=== PATIENT | female | born 1965 | race Caucasian/White ===

== ENCOUNTER 2016-12-20 08:42 | Day surgery (SDC) | payer BC ==
[~2016-12-20 08:42] MED LIST: Lidocaine 1%/Sod Bicarbonate in NS 8.4% 1 ML Syringe PRN; Sodium Chloride 0.9% 10 ML Syringe FLUSH PRN
[2016-12-20] MEDS ORDERED: Propofol 200 MG/20 ML SDV ONE (09:11)
[2016-12-20] MEDS ORDERED: fentaNYL 250 MCG/5 ML SDV ONE (09:11)
[2016-12-20] MEDS ORDERED: Ondansetron 4 MG/2 ML SDV ONE (09:11)
[2016-12-20] MEDS ORDERED: Midazolam 1 MG/ML 2 ML SDV ONE (09:11)
[2016-12-20] MEDS ORDERED: Rocuronium 50 MG/5 ML Vial ONE (09:11)
[2016-12-20] MEDS ORDERED: Lidocaine 1% 4 ML ONE (09:12)
[2016-12-20] MEDS ORDERED: Dexamethasone 4 MG/ML 5 ML MDV ONE (09:12)
[2016-12-20] MEDS: Lactated Ringers 1,000 ML IV SCH ×2 (09:15→12:36)
--- NOTE | 2016-12-20 09:22 | PCM.PREANE ---
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 , Other (see below) Other OB/BYN History: irregular menses, , yeast infection Musculoskeletal History: Reports: None Neurological History: Reports: Headaches, chronic, Migraines Psychiatric History: Reports: Depression, Other (see below) Other Psychiatric History: fatigue Endocrine/Metabolic History: Reports: None Hematologic History: Reports: None Immunologic History: Reports: None Oncologic (Cancer) History: Reports: None Dermatologic History: Reports: Other (see below) Other Dermatologic History: malignant melanoma - Past Surgical History Head Surgeries/Procedures: Reports: None HEENT Surgical History: Reports: Tonsillectomy GI Surgical History: Reports: Other (see below) Other GI Surgeries/Procedures: hemorrhoidectomy - SUBSTANCE USE Smoking Status *Q: Never Smoker Recreational Drug Use History: No - HOME MEDS Home Medications: Home Meds Cholecalciferol (Vitamin D3) [Vitamin D3] 1,000 unit PO DAILY 12/19/16 [History] Cyclobenzaprine HCl [Cyclobenzaprine HCl] 1 tab PO BEDTIME PRN 12/19/16 [History ] FLUoxetine HCl [Fluoxetine HCl] 40 mg PO DAILY 12/19/16 [History] FLUoxetine [PROzac] 20 mg PO DAILY 12/19/16 [History] Ibuprofen 1 - 3 tab PO Q6H PRN 12/19/16 [History] Multivitamin [Daily Juan] 1 tab PO DAILY 12/19/16 [History] SUMAtriptan Succinate [Sumatriptan Succinate] 1 tab PO ASDIRECTED PRN 12/19/16 [ History] - CURRENT (IN HOUSE) MEDS Current Meds: Current Medications Lactated Ringer's (Ringers, Lactated) 1,000 mls @ 125 mls/hr IV ASDIRECTED JENNA Stop: 12/20/16 23:00 Lidocaine/Sodium Bicarbonate (Buffered Lidocaine 1% In Ns 8.4%) 0.25 ml .XX ONETIME PRN PRN Reason: Prior to IV Start Stop: 12/20/16 18:00 Sodium Chloride (Saline Flush) 10 ml FLUSH ASDIRECTED PRN PRN Reason: Keep Vein Open Stop: 12/20/16 18:00 Discontinued Medications Dexamethasone (Dexamethasone) Confirm Administered Dose 20 mg .ROUTE .STK-MED ONE Stop: 12/20/16 09:13 Fentanyl (Sublimaze) Confirm Administered Dose 250 mcg .ROUTE .STK-MED ONE Stop: 12/20/16 09:12 Lidocaine HCl (Xylocaine-Mpf 1%) Confirm Administered Dose 4 mls @ as directed .ROUTE .STK-MED ONE Stop: 12/20/16 09:13 Midazolam HCl (Versed 1 Mg/Ml) Confirm Administered Dose 2 mg .ROUTE .STK-MED ONE Stop: 12/20/16 09:12 Ondansetron HCl (Zofran) Confirm Administered Dose 4 mg .ROUTE .STK-MED ONE Stop: 12/20/16 09:12 Propofol (Diprivan 20 Ml) Confirm Administered Dose 200 mg .ROUTE .STK-MED ONE Stop: 12/20/16 09:12 Rocuronium [place] (Zemuron) Confirm Administered Dose 50 mg .ROUTE .STK-MED ONE Stop: 12/20/16 09:12 Preanesthetic Assessment - ANESTHESIA/TRANSFUSION/FAMILY HX Anesthesia/Transfusion History: No Prior Transfusion(s), Prior Anesthesia Type of Anesthesia Reaction: Denies: Allergy, Anesthesia Awareness, Excessive Somnolence, Excessive Nausea/Vomiting, Excessive Itching, Excessive Shivering, Malignant Hyperthermia, Malignant Hyperthermia, Family History, Pseudocholinesterase Deficiency, Pseudocholinesterase Deficiency, Family History of, Urinary Retention, Unknown, Other (see below) Family History of Anesthesia Reaction: No Intubation History: Unknown - REVIEW OF SYSTEMS Constitutional: Reports: no symptoms 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 Respiratory: Reports: no symptoms (asthma as a child.) Cardiovascular: Reports: no symptoms GI: Reports: no symptoms (occasional GERD) Other: Reports: None (migraines.), Easy Bruising, Depression - PHYSICAL ASSESSMENT HR: 98 O2 Sat by Pulse Oximetry: 97 RR: 18 BP: 133/76 Temp: 36.6 C Height: 1.52 m Weight: 70.307 kg NPO Status Date: 12/19/16 NPO Status Time: 21:00 ASA Class: 2 Mental Status: Alert & Oriented x3 Airway Class: Mallampati = 2 Dentition: Reports: Normal Dentition, Implants (front caps.), Caries Thyro-Mental Finger Breadths: 3 Mouth Opening Finger Breadths: 3 ROM/Head Extension: Full Respiratory Status: lungs clear to auscultation bilaterally Cardiovascular Status: regular rate & rhythm, normal S1, S2, no murmur - LAB Values: Reviewed and noted. - ALLERGIES Allergies/Adverse Reactions: Allergies Allergy/AdvReac Type Severity Reaction Status Date / Time No Known Allergies Allergy Verified 12/19/16 16:13 - ANESTHESIA PLAN Preop Beta Michael: No Anesthesia Type Planned: General Anesthesia - ACKNOWLEDGEMENTS Pt an Appropriate Candidate for the Planned Anesthesia: Yes Alternatives and Risks of Anesthesia Discussed w Pt/Guardian: Yes Pt/Guardian Understands and Agrees with Anesthesia Plan: Yes
[2016-12-20] MEDS: Lidocaine 1% with EPINEPHrine 1:100,000 20 ML MDV ONE ×2 (10:58→11:00)
[2016-12-20] MEDS: Sodium Chloride 0.9% 50 ML SDV ONE ×2 (10:58→11:00)
[2016-12-20] MEDS ORDERED: Ondansetron 4 MG/2 ML SDV IVPUSH PRN ×2 (11:04→11:37)
[2016-12-20] MEDS ORDERED: Meperidine PF 50 MG/ML Syringe IVPUSH PRN (11:04)
[2016-12-20] MEDS ORDERED: diphenhydrAMINE 50 MG/ML SDV IVPUSH PRN (11:04)
--- NOTE | 2016-12-20 11:32 | PCM.POSTAN ---
POST ANESTHESIA ASSESSMENT - MENTAL STATUS Mental Status: alert, oriented - VITAL SIGNS Pulse Rate: 95 SaO2: 97 Resp Rate: 17 Blood Pressure: 131/72 Temperature: 37.2 C - RESPIRATORY Respiratory Status: respiratory rate WNL, airway patent, O2 saturation stable - CARDIOVASCULAR CV Status: pulse rate WNL, blood pressure stable - GASTROINTESTINAL GI Status: no symptoms - PAIN Pain Score: 0 - POST OP HYDRATION Hydration Status: adequate & stable
--- NOTE | 2016-12-20 11:35 | PCM.OPNOTE ---
- General Post-Op/Procedure Note Date of Surgery/Procedure: 12/20/16 Operative Procedure(s): Total vaginal hysterectomy with Bilateral salpino- oophorectomy Findings: Normal appearing uterus, tubes and ovaries. Pre Op Diagnosis: Irregular menses Post-Op Diagnosis: Same Anesthesia Technique: General ET tube Other Anesthesia Type: Local Primary Surgeon: Shantanu Seay Secondary Surgeon: Pop Chiu Anesthesia Provider: Anuj Mcknight Fleet Service Manager: Ruby Ramsey Pathology: uterus, tubes and ovaries in one container. Fluid Replacement, Intraop: 1,000 EBL in mLs: 20 Complications: None Condition: Good Free Text/Narrative:: Surgery duration: Benign minutes Patient's: None Procedure:The patient was taken to the operating room. She was placed in supine position on the operating table. General endotracheal anesthesia and was accomplished. Patient was given Ancef 2 g IV preop for infection prophylaxis and had sequential compression stockings in place for DVT prophylaxis. After positioning prep and drape were accomplished in a routine fashion. The patient was then operated upon. Sterile weighted speculum was placed in the vagina and cervix was visualized. Cervix was injected with lidocaine quarter percent with epinephrine-20 cc total. A full circumference incision was made through the cervical epithelium and cervical epithelium was pushed well back off the cervix. Posterior cul-de-sac was entered sharply. The left uterosacral ligament was then crossclamped with a LigaSure vessel closure system. This is developed in routine fashion. Same was done on the right side. Anterior cul-de-sac was then entered without problems. The uterine vasculature, remainder of cardinal ligament, broad ligament and eventually fallopian tube and upper broad ligament pedicles were then developed using LigaSure vessel closure system. At this time the fallopian tube on the left side was isolated and using LigaSure vessel closure system meso-salpinx was cauterized. The ovary and fallopian tube were then removed by crossclamping the infundibulopelvic ligament. This pedicle was suture ligated using #1 Vicryl suture in a Ibeth stitch. Same was then done on the side. The posterior cuff was then run from approximately the 2:00 to the 10 :00 position posteriorly with a running lock suture of 0 Monocryl Hemostasis was confirmed at this time. Sponge instrument and needle counts are correct. The pursestring suture of 0 Monocryl was then used to close the peritoneal cavity. The vaginal cuff was closed with a running locked suture from right side to left side with 0 Monocryl suture. At this time hemostasis confirmed. Sponge, instrument and needle counts were correct. The patient was returned to supine position and awakened from general endotracheal anesthesia. She tolerated the procedure well and left the operating room in good condition.
[2016-12-20] MEDS ORDERED: Acetaminophen/oxyCODONE 325-5 MG Tab PO PRN (11:37)
[2016-12-20] MEDS ORDERED: Ketorolac 30 MG/ML SDV ONE (11:39)
[2016-12-20] MEDS: fentaNYL 100 MCG/2 ML SDV IVPUSH PRN ×2 (11:50→12:26)
[2016-12-20] MEDS: HYDROmorphone 0.5 MG/0.5 ML Syringe IVPUSH PRN ×2 (12:00→12:15)
[2016-12-20] MEDS ORDERED: Ketorolac 30 MG/ML SDV IVPUSH ONE (12:30)
[2016-12-20] MEDS ORDERED: Acetaminophen/Codeine 300-30 MG Tab PO ONE (14:40)
--- NOTE | 2016-12-20 14:44 | PCM48HPAN ---
Post Anesthesia Note - EVALUATION WITHIN 48HRS OF ANESTHETIC Vital Signs in Normal Range: Yes Patient Participated in Evaluation: Yes Respiratory Function Stable: Yes Airway Patent: Yes Cardiovascular Function Stable: Yes Hydration Status Stable: Yes Pain Control Satisfactory: Yes (01/09) Nausea and Vomiting Control Satisfactory: Yes Mental Status Recovered: Yes
[2016-12-20 15:33] VITALS: BP 116/68
== END 2016-12-20 15:25 | disposition home or self-care (01) ==
LOC: JD.SDS 08:42
PROVIDERS: ATTEND Obstetrics & Gynecology
PROC: 0UT97ZZ Resection of Uterus, Via Natural or Artificial Opening (ICD-10-PCS; principal; 2016-12-20)
PROC: 0UTC7ZZ Resection of Cervix, Via Natural or Artificial Opening (ICD-10-PCS; 2016-12-20)
PROC: 0UT27ZZ Resection of Bilateral Ovaries, Via Natural or Artificial Opening (ICD-10-PCS; 2016-12-20)
PROC: 0UT77ZZ Resection of Bilateral Fallopian Tubes, Via Natural or Artificial Opening (ICD-10-PCS; 2016-12-20)
DX: N92.1 Excessive and frequent menstruation with irregular cycle (principal); N88.8 Other specified noninflammatory disorders of cervix uteri; N72 Inflammatory disease of cervix uteri; D25.9 Leiomyoma of uterus, unspecified; N73.6 Female pelvic peritoneal adhesions (postinfective); N83.8 Other noninflammatory disorders of ovary, fallopian tube and broad ligament; F32.9 Major depressive disorder, single episode, unspecified; C43.9 Malignant melanoma of skin, unspecified; Z79.899 Other long term (current) drug therapy; Z80.41 Family history of malignant neoplasm of ovary
CPT/HCPCS: 58262; A9270; J1100; J1170; J1200; J1885; J2250; J2405; J3010; J7120; 00944; J2704